=== PATIENT | female | born 1970 | race Hispanic/Latino ===

== ENCOUNTER 2016-11-08 09:48 | Emergency (ER) | payer OTHER ==
[2016-11-08] VITALS (8 sets, daily range): BP systolic 161–214; BP diastolic 84–114; PULSE 88–112; RESP 16–22; O2SAT 95–97
[~2016-11-08] VITALS: Ht 121.9 cm; Wt 68.2 kg
[~2016-11-08 09:48] MED LIST: CEPH500C PO; CLON0.1T PO; CYCL10TA9 PO; FLUC150T3 PO; FLUC150T48 PO; GLPZ5T PO; HYDR-4003 PO; HYDR25TA4 PO; LISI-567 PO; LOSA100T29 PO; LOVA40TA PO; METF500T4 PO; METH750T3 PO; MICO1KIT18 VG; PENI500T PO
--- NOTE | 2016-11-08 09:51 | ED.REPORT ---
HPI-Stroke / CVA Nov 08, 2016 ED Provider: Matt Cartwright MD 46 year old Tongan-speaking female with a history of brain aneurysm, diabetes, HTN, and high cholesterol presents to the ER via EMS accompanied by her due to right upper extremity weakness onset this morning while at work. Last known normal 09:00 today. However, the states that symptoms were present last night but resolved. He also mentions that the patient has not taken her diabetes medications for the past week. It is not clear if the patient is on anticoagulants or not. Patient is a poor historian. Nursing Notes Stated Complaint: RIGHT SIDE WEAKNESS Nursing Notes Reviewed: Yes Allergies: Coded Allergies: No Known Allergies (Verified , 02/20/16) Scheduled Cephalexin (Cephalexin) 500 Mg Capsule 500 MG PO TID Clonidine (Clonidine) 0.1 Mg Tablet 0.1 MG PO BID (Reported) Fluconazole (Diflucan) 150 Mg Tablet 150 MG PO ONCE Fluconazole (Fluconazole) 150 Mg Tablet 150 MG PO ONCE In [place] Please Glipizide (Glipizide) 5 Mg Tablet 5 MG PO BIDAC (Reported) Hydrochlorothiazide (Hydrochlorothiazide) 25 Mg Tablet 25 MG PO DAILY (Reported ) Lisinopril (Lisinopril) 20 Mg Tablet 20 MG PO DAILY (Reported) Losartan Potassium (Losartan Potassium) 100 Mg Tablet 100 MG PO DAILY (Reported ) Lovastatin (Lovastatin) 40 Mg Tablet 40 MG PO HS (Reported) Metformin (Metformin) 500 Mg Tablet 500 MG PO BIDWM (Reported) Miconazole/Skin Cleanser No.17 (Miconazole 3 Kit) 4 % (200 Mg)-2 % (9 Gram) Kit 1 EACH VG HS Penicillin V Potassium (Penicillin V Potassium) 500 Mg Tablet 500 MG PO TID Scheduled PRN Cyclobenzaprine (Cyclobenzaprine) 10 Mg Tablet 10 MG PO BID PRN PRN For Spasm ( Reported) Hydrocodone-Acetaminophen 5-325 mg (Hydrocodone-Acetaminophen 5-325 mg) 1 Each Tablet 1 TABLET PO QID PRN PRN For Pain Methocarbamol (Methocarbamol) 750 Mg Tablet 750 MG PO TID PRN PRN For Spasm ( Reported) General Time Seen by Provider: 09:48 Chief Complaint Weakness Right-sided, Arm right Hx Obtained From: Patient, Spouse Arrived By: Ambulance Time last known well 09:00 today Sudden in Onset?: Yes Symptom Duration: Since onset Progression Since Onset: Unchanged Pertinent Negative: Pt denies other symptoms Context Related History: Reports: Diabetes mellitus Similar Sx Previous: No Risk Factors )( TPA Administration/Criteria Stroke Thrombolytic Therapy : TPA Considered: Yes Neurologist Contacted: Yes Consent Obtained: Patient, Spouse Intensive Monitoring Performed: Yes TPA Administered Intravenously: Yes Inclusion Criteria: Dx acute ischemic CVA NIH Stroke Scale Level of Consciousness: Alert and responsive (0) Ask Month & Age: Both questions right (0) Open/Close Eyes/Hand Brood Station Manager: Performs both tasks (0) Horizontal EO Movements: None (0) Visual Vela: No visual loss (0) Facial Palsy: Normal symmetry (0) Right Arm Motor Drift (10s): Drift, not touch bed (1) Left Arm Motor Drift (10s): No drift 10 sec (0) Right Leg Motor Drift (5s): Drift, not touch bed (1) Left Leg Motor Drift (5s): No drift 5 sec (0) Limb Ataxia FNF/Heel-Ceja: No ataxia (0) Sensation (Arms/Legs/Face): Pinprick less sharp (1) (Right Upper and Lower extremities) Language Aphasia: No aphasia, normal (0) Dysarthria: No dysarthria, normal (0) Extinction/Inattention: No exctinct/inattent (0) NIHSS Score: 3 Time NIHSS Performed: 09:59 Date NIHSS Performed: Nov 08, 2016 )( CVA Risk Stratification Anticoag/bleed diathesis Diabetes mellitus Hyperlipidemia HypertensionNo Age > 60 Risk factors reviewed Past Medical History Past Medical History Brain aneurysm. Seen here, per patient Reports: Diabetes mellitus, Hyperlipidemia (High Cholesterol), Hypertension Past Surgical History Ear surgery Smoking History Unknown if Ever Smoker Social History Works at [employer], hanging and packing chicken. Other Social History: Good social support, Review of Systems Constitutional: Denies: Chills, Fever GI: Denies: Nausea, Vomiting Neurologic: Reports: Focal weakness (Right Upper Extremity), Denies: Change LOC, Confusion, Headache, Numbness, Slurred speech, Unable to speak Complete sys rev & neg: except as marked. Physical Exam Initial Vital Signs Vital Signs (First) Date Time Temp Pulse Resp B/P Pulse Ox O2 Delivery O2 Flow Rate FiO2 11/08/16 09:58 37.0 111 18 214/114 95 Room Air Initial VS: Reviewed Extremities: Vascular intact, Neuro intact, No swelling, No tenderness Skin: Warm, Dry, No cyanosis General/Constitutional: Awake, Alert, Well developed, Well nourished Head / Eyes: Normocephalic, PERRL, EOMI Neck: Supple, Full range of motion, No swelling, Non-tender, No carotid bruit Respiratory / Chest: Breath sounds NL, Breath sounds = bilat, No respiratory distress, No rales, No rhonchi, No wheezing Cardiovascular: Heart rate NL, Regular rhythm, Heart sounds NL, No murmurs, Peripheral circulation NL Neurologic: Oriented X3, Speech NL See the NIH Stroke Scale in the Risk section of this note. Interpretation & Diagnostics PROCEDURE: MRI BRAIN WITHOUT CONTRAST ([id number]) INDICATIONS: CVA SYMPTOMS TECHNIQUE: Noncontrast axial T1 spin echo, axial T2 fast spin echo, sagittal and axial FLAIR, coronal T2 fast spin echo, axial gradient echo, axial diffusion and ADC through the brain. COMPARISON: [facility], CT, BRAIN (TPA), 11/08/2016, 9:57. FINDINGS: Image quality: Excellent. CSF Spaces: Basal cisterns are patent. No extra-axial fluid collections. Ventricles are normal in size and shape. Brain: No intracranial masses or hemorrhage. Sauceda/white matter interface is normal. Brainstem appears normal. Diffusion-weighted images demonstrate a very slight appearance of hyperintensity within the left thalamus. It is noted that this does correlate to hypointense ADC signal. There is no discernible change on T2/FLAIR sequences. No chronic ischemic insults. Normal intravascular flow voids are present. The area of previous concern within the right temporal lobe appears to correlate with a perivascular space. No hemorrhage is identified within this region. Skull and face: Calvarium has normal marrow signal. Orbits appear normal. Sinuses: Sinuses and mastoids are clear. IMPRESSION: 1. Acute ischemia within the left thalamus as above. No evidence of superimposed hemorrhage. The above findings were discussed with Dr. Matt Spicer on 11/08/16 at 11: 28 AM. Dictated by: Briseida Beltran M.D. on 11/08/2016 at 11:23 Approved by: Briseida Beltran M.D. on 11/08/2016 at 11:30 PROCEDURE: CT ANGIO BRAIN NECK TPA INDICATIONS: Right-sided weakness. TECHNIQUE: Pre-contrast 4.5 mm thick sections acquired from the foramen magnum to the vertex. After the administration of intravenous contrast, 1 mm thick sections acquired from the aortic arch through the [place] of [place]. Post-contrast 4.5 mm thick sections then re-acquired from the foramen magnum to the vertex. 3- dimensional rlslsaw-ywjpwwczl-mhzpiddkae (MIP) and/or volume rendering reformats were acquired of the central intracranial vasculature and neck separately. For radiation dose reduction, the following was used: automated exposure control, adjustment of mA and/or kV according to patient size. COMPARISON: [facility], MR, MR BRAIN WO CON, 11/08/2016, 10:42. [facility], CT, BRAIN (TPA), 11/08/2016, 9:57. FINDINGS: Image quality: BRAIN: CSF spaces: Ventricles are normal in size and shape. Basal cisterns are patent. No extra-axial fluid collections. Brain: No midline shift. No intracranial bleeds or masses. Prominent perivascular space noted in the left putamen which is stable compared to MRI. Physiologic ossifications in the globus pallidus stable compared to prior CT scan of the head. Skull and face: Calvarium and facial bones appear intact, without suspicious lesions. Orbits appear normal. Sinuses: Mucosal thickening and air-fluid level is noted in the left maxillary sinus. mastoids are clear. HEAD CT ANGIOGRAPHY: Anterior circulation: Intracranial internal carotid arteries are normal in flow. Atherosclerotic calcifications noted in the cavernous and supraclinoid segments of the internal carotid arteries bilaterally which causes mild to moderate stenoses. The flow within the paired anterior cerebral arteries is normal and symmetric. The flow within the middle cerebral arteries is normal and symmetric. The anterior communicating artery is seen. No aneurysms are seen. Posterior circulation: Visualized portions of the vertebral arteries demonstrate normal caliber, and join to form a normal appearing basilar artery. Flow within the posterior cerebral arteries is normal and symmetric. No aneurysms are seen. Dural sinuses enhance normally. NECK CT ANGIOGRAPHY: Carotid system: The great vessels demonstrate a conventional anatomy as they arise from the aortic arch. The origins of the common carotid arteries appear patent. The common carotid arteries demonstrate normal caliber and courses. Atherosclerotic calcifications are noted the origins of the internal carotid arteries bilaterally which causes less than 50% stenosis of the vessels. Posterior circulation: The origins of the vertebral arteries both appear widely patent. The more superior extracranial portions of both vertebral arteries also demonstrate normal courses and calibers. They join to form a normal appearing basilar artery. Soft tissues: Visualized neck soft tissues demonstrate no suspicious abnormalities. Bones: No suspicious bony lesions. Visualized cervical spine appears normally aligned. IMPRESSION: 1. No cerebral aneurysm identified. 2. Multifocal mild to moderate stenoses involving the cavernous and supraclinoid segments of the intracranial internal carotid arteries bilaterally. 3. Less than 50% stenosis of the origins of the internal carotid arteries bilaterally. 4. Vertebral arteries appear fully patent. 5. Findings telephoned to Dr. Matt Cartwright on 11/08/16 at 1253 hrs. Dictated by: Beth Morton MD, PhD on 11/08/2016 at 12:49 Approved by: Beth Morton MD, PhD on 11/08/2016 at 13:08 Lab Results Interpretation Result Diagram: 11/08/16 0950 11/08/16 0950 Test 11/08/16 09:50 11/08/16 10:00 White Blood Count 11.1th/mm3 (3.8-10.1) Red Blood Count 5.22mil/mm3 (3.90-5.20) Hemoglobin 15.3g/dL (12.0-15.6) Hematocrit 44.6% (35.0-46.0) Mean Corpuscular Volume 85.4fL (81-100) Mean Corpuscular Hemoglobin 29.3pg (27.0-35.0) Mean Corpuscular Hemoglobin Concent 34.3% (32.0-37.0) Red Cell Distribution Width 12.2% (12.3-15.4) Platelet Count 402bil/L (150-400) Neutrophils (%) (Auto) 55.0% (40-74) Lymphocytes (%) (Auto) 31.8% (14-46) Monocytes (%) (Auto) 5.9% (4-12) Eosinophils (%) (Auto) 6.3% (0-5) Basophils (%) (Auto) 0.8% (0-3) Prothrombin Time 10.3sec (8.1-12.5) Prothromb Time International Ratio 0.96ratio Activated Partial Thromboplast Time 28.1sec (22.8-33.0) Sodium Level 135mEq/L (134-144) Potassium Level 3.5mEq/L (3.5-5.2) Chloride Level 95mEq/L (97-108) Carbon Dioxide Level 21mmol/L (18-29) Blood Urea Nitrogen 8mg/dL (6-24) Creatinine 0.42mg/dL (0.57-1.00) Estimat Glomerular Filtration Rate 232mL/min (>59) Glucose Level 427mg/dL (60-99) Calcium Level 9.0mg/dL (8.5-10.1) Total Bilirubin 0.4mg/dL (0.0-1.2) Aspartate Amino Transf (AST/SGOT) 32U/L (0-50) Alanine Aminotransferase (ALT/SGPT) 40U/L (0-32) Alkaline Phosphatase 101U/L (25-150) Troponin T 0.010ug/L (0.0-0.011) Total Protein 8.4g/dL (6.4-8.4) Albumin 4.3g/dL (3.4-5.0) Urine Color Straw (YELLOW) Urine Appearance Hazy (CLEAR,HAZY) Urine pH 6.5 (5.0-8.0) Urine Specific [place] 1.010 (1.003-1.035) Urine Protein Negativemg/dL (NEG,TRACE) Urine Glucose (UA) 1000mg/dL (NEGATIVE) Urine Ketones Negativemg/dL (NEGATIVE) Urine Occult Blood Trace (NEGATIVE) Urine Nitrite Negative (NEGATIVE) Urine Bilirubin Negative (NEGATIVE) Urine Urobilinogen Normalmg/dL (NORMAL) Urine Leukocyte Esterase Negative (NEGATIVE) Urine RBC 0-2/hpf (0-2) Urine WBC 0-5/hpf (0-5) Urine Epithelial Cells Occasional/hpf (NONE-MOD) Urine Crystals None seen (NONE SEEN) Urine Bacteria None/hpf (NONE-FEW) Urine Hyaline Casts None/lpf (NONE) Urine Granular Casts None seen (NONE SEEN) Urine Waxy Casts None seen (NONE SEEN) Urine Red Blood Cell Casts None seen (NONE SEEN) Urine White Blood Cell Casts None seen (NONE SEEN) Urine Mucus None seen (None Seen) Urine Trichomonas None seen (NONE SEEN) Urine Yeast None (NONE SEEN) Urinalysis Comment None Urine Culture Reflexed Not indicated ECG Interpretation ECG Interpretation: Sinus rhythm, rate 93 LVH Time: 12:03 Interpreted by: ED physician CT Head Interpretation IMPRESSION: 1. Questionable intermediate density focus within the right lentiform nucleus adjacent to a hypodense lesion which may represent a prominent perivascular space or small old lacunar infarct. Given the hyperdense focus, intracranial hemorrhage cannot be excluded. If further characterization is warranted, noncontrast MRI of the brain is recommended to evaluate for blood products. The finding was discussed with Dr. Alessandro Anaya at 10:07 AM on 11/08/16. 2. Left maxillary sinus and left mastoid air cell mucosal disease. This study fulfills neurological imaging criteria for inclusion or exclusion of acute stroke therapies based on available published neurological imaging guidelines. Dictated by: Ivana Coto M.D. on 11/08/2016 at 10:02 Approved by: Ivana Coto M.D. on 11/08/2016 at 10:09 Study: Head CT no contrast Interpretation / Wet Read by: Interpret - Radiologist Re-Eval/Medical Decision Med Decision/Clinical Course 46-year-old female history of diabetes, hypertension, high cholesterolemia, question of previous aneurysm resenting with right upper extremity and lower extremity weakness and decreased sensation right upper extremity and right lower extremity last known normal 9 AM this morning. Patient came in as a code stroke. She received CT brain immediately and there was a question of possible hemorrhage by the radiologist but it was not confirmed. They recommended urgent MRI. I spoke with stroke neurologist immediately who agreed with this plan. MRI showed left thalamic infarct with no evidence of aneurysm. I spoke with stroke neurologist again who did not want to give TPA until we could rule out aneurysm given patient's previous report of aneurysm. Patient is a very poor historian and at times she said she did not know what an aneurysm was. She also was not sure if she is on any blood thinners. We did obtain a list from her primary doctor which showed no blood thinners. Care was delayed due to patient unclear on her specifics and being a poor historian. Discussed with stroke neurologist again he requested CT angiogram brain to rule out history of aneurysm given patient's report. CT angiogram showed no evidence of aneurysm. Decision made by [facility] neurology to give TPA extended time frame. As mentioned there was significant delay given patient's mention of a previous aneurysm and the need for multiple imaging due to possible initial bleed as well as possible history of aneurysm. TPA was given within the extended TPA timeframe. No contraindication to TPA per patient. Her exam was improved after TPA. She was transferred emergently to [facility] in [place]. Nicardiipine drip ordered to maintain blood pressure control. Insulin event for elevated blood sugar. Repeat blood sugar 210. Recheck prior to discharge. TPA given within 4-1/2 hours of onset, extended time frame okay per neurologist. Source of Hx: Old records Re-Evaluation/Progress #1: Time of Eval: 10:10 Re-Evaluation/Progress Note: Completed physical examination. Discussed CT results and need for STAT MRI. Re-Evaluation/Progress #2: Time of Eval: 11:40 Re-Evaluation/Progress Note: Discussed patient's history of brain aneurysm in greater detail. She reports that she had a blood vessel in her brain that was in danger of rupturing years ago. Per patient, she was seen at the hospital here at that time, and never received surgery. Re-Evaluation/Progress #3: Time of Eval: 12:01 Re-Evaluation/Progress Note: Discussed radiology and neurology consults. Updated patient on the plan of care. Consultation #1: Consulted With: On-call physician (Radiology) Call Returned at: 10:06 Note: Radiology called to discuss CT results. Possible bleed in the basal ganglia. STAT MRI. Consultation #2: Referral / Consult Name: Fabiano Atwood MD Consulted With: Neurology ([facility]) Call Returned at: 10:17 Note: Agrees with MRI, call back if there is no bleed. Consultation #3: Consulted With: On-call physician (Radiology) Call Returned at: 11:29 Note: Radiology called to discuss MRI results. No bleed. Consultation #4: Referral / Consult Name: Fabiano Atwood MD Consulted With: Neurology ([facility]) Call Returned at: 11:33 Note: Order head CTA. If no aneursym, proceed with TPA. Consultation #5: Consulted With: On-call physician (Radiology) Call Returned at: 11:49 Note: Discussed patient's history with Radiology. Consultation #6: Referral / Consult Name: Fabiano Atwood MD Consulted With: Neurology Call Returned at: 12:55 Note: Administer TPA per inclusion criteria. Counseled Regarding: Diagnosis, Lab results, Need for transfer Patient Discharge & Departure Impression: Primary Impression: Cerebrovascular accident Disposition: Transfer, Acute Care Facility Receiving Hospital: [facility] Transfer Accepted: Yes Transfer Reason: Higher level of care Spoke with: Attending physician Patient Status: Stable for transfer Patient Informed: Yes Discharge Condition All VS Reviewed: Yes Condition: Stable Referrals: [facility] Billable Proc Time Spent: 75-104 minutes Services Performed: Patient management by me, Time spent at bedside, Reviewing test results, Reviewing imaging, Discussing patient care, Documentation in record, Time with fam/surrogate Scribe Attestation Portions of this note were transcribed by Diogo Ramirez. I, Dr. Cartwright, personally performed the history, physical exam and medical decision-making; I reviewed and confirmed the accuracy of the information in the transcribed note. Signed by: Leann Jackson, 11/08/2016 and 1409 copies to: [facility] Ben M MD Nov 08, 2016 09:51 DIOGO RAMIREZ Nov 08, 2016 10:05
[2016-11-08 10:10] LABS: BASOPHILS % (AUTO) 0.8 % (0-3); EOSINOPHILS % (AUTO) 6.3 % (0-5); MONOCYTES % (AUTO) 5.9 % (4-12); Mean Corpuscular Hemoglobin 29.3 pg (27.0-35.0); Mean Corpuscular Volume 85.4 fL (81-100); Platelet Count 402 bil/L (150-400)
--- NOTE | 2016-11-08 10:11 | DRSVH ---
PROCEDURE: CT BRAIN (TPA) ([id number]) INDICATIONS: Stroke TECHNIQUE: Noncontrast 4.5 mm thick angled axial sections acquired from the foramen magnum to the vertex, with c oronal reformats. COMPARISON: None. FINDINGS: Image quality: Excellent. CSF spaces: Basal cisterns are patent. No extra-axial fluid collections. Ventricles are normal in size and shape. Brain: No midline shift. No intracranial masses. A 11 x 4 mm hypodense focus is present within the right lentiform nucleus. Just posterior to this low density focus is a 3 mm diameter intermediate den sity region. This appears more dense than the surrounding brain parenchyma (series 3, image 13). Gra y-white matter interface is otherwise normal. Skull and face: Calvarium and visualized facial bones are intact, without suspicious lesions. Sinuses: There is near-complete opacification of the left maxillary sinus and right maxillary sinus mucus retention cysts. The left mastoid air cells are partially fluid filled. Visualized sinuses and mastoids are otherwise clear. IMPRESSION: 1. Questionable intermediate density focus within the right lentiform nucleus adjacent to a hypodense lesion which may represent a prominent perivascular space or small old lacunar infarct. Given the hy perdense focus, intracranial hemorrhage cannot be excluded. If further characterization is warranted, noncontrast MRI of the brain is recommended to evaluate for blood products. The finding was discussed with Dr. Alessandro Anaya at 10:07 AM on 11/08/16. 2. Left maxillary sinus and left mastoid air cell mucosal disease. This study fulfills neurological imaging criteria for inclusion or exclusion of acute stroke therapie s based on available published neurological imaging guidelines. Dictated by: Ivana Coto M.D. on 11/08/2016 at 10:02 Approved by: Ivana Coto M.D. on 11/08/2016 at 10:09
[2016-11-08 10:34] LABS: INR 0.96 ratio
[2016-11-08] MEDS ORDERED: Insulin LISPRO 300 Unit/3 mL Inj SUBQ ONE ×2 (10:35→14:15)
[2016-11-08 10:52] LABS: TROPONIN T 0.01 ug/L (0.0-0.011)
[2016-11-08 11:04] LABS: APPEARANCE,URINE HAZY (CLEAR,HAZY); COLOR,URINE STRAW (YELLOW); OCCULT BLOOD,URINE TRACE (NEGATIVE); PH,URINE 6.5 (5.0-8.0); UROBILINOGEN,URINE NORMAL (NORMAL)
--- NOTE | 2016-11-08 11:32 | DRSVH ---
PROCEDURE: MRI BRAIN WITHOUT CONTRAST ([id number]) INDICATIONS: CVA SYMPTOMS TECHNIQUE: Noncontrast axial T1 spin echo, axial T2 fast spin echo, sagittal and axial FLAIR, coronal T2 fast sp in echo, axial gradient echo, axial diffusion and ADC through the brain. COMPARISON: [facility], CT, BRAIN (TPA), 11/08/2016, 9:57. FINDINGS: Image quality: Excellent. CSF Spaces: Basal cisterns are patent. No extra-axial fluid collections. Ventricles are normal in size and shape. Brain: No intracranial masses or hemorrhage. Sauceda/white matter interface is normal. Brainstem appe ars normal. Diffusion-weighted images demonstrate a very slight appearance of hyperintensity within the left thalamus. It is noted that this does correlate to hypointense ADC signal. There is no discer nible change on T2/FLAIR sequences. No chronic ischemic insults. Normal intravascular flow voids are present. The area of previous concern within the right temporal lobe appears to correlate with a pe rivascular space. No hemorrhage is identified within this region. Skull and face: Calvarium has normal marrow signal. Orbits appear normal. Sinuses: Sinuses and mastoids are clear. IMPRESSION: 1. Acute ischemia within the left thalamus as above. No evidence of superimposed hemorrhage. The above findings were discussed with Dr. Matt Spicer on 11/08/16 at 11:28 AM. Dictated by: Briseida Beltran M.D. on 11/08/2016 at 11:23 Approved by: Briseida Beltran M.D. on 11/08/2016 at 11:30
[2016-11-08] MEDS ORDERED: Labetalol 5 mg/mL 4 mL Inj IVPUSH ONE ×2 (11:35→13:25)
[2016-11-08] MEDS ORDERED: 0.9% Sodium Chloride 100 ML ONE (13:00)
--- NOTE | 2016-11-08 13:09 | DRSVH ---
PROCEDURE: CT ANGIO BRAIN NECK TPA INDICATIONS: Right-sided weakness. TECHNIQUE: Pre-contrast 4.5 mm thick sections acquired from the foramen magnum to the vertex. After the adminis tration of intravenous contrast, 1 mm thick sections acquired from the aortic arch through the [place]. Post-contrast 4.5 mm thick sections then re-acquired from the foramen magnum to the vert ex. 3-dimensional diosktt-wdrfoiose-gcqgzbnrdb (MIP) and/or volume rendering reformats were acquired of the central intracranial vasculature and neck separately. For radiation dose reduction, the foll owing was used: automated exposure control, adjustment of mA and/or kV according to patient size. COMPARISON: [facility], MR, MR BRAIN WO CON, 11/08/2016, 10:42. [facility], CT, BRAIN (TPA), 11/08/2016, 9:57. FINDINGS: Image quality: BRAIN: CSF spaces: Ventricles are normal in size and shape. Basal cisterns are patent. No extra-axial flu id collections. Brain: No midline shift. No intracranial bleeds or masses. Prominent perivascular space noted in th e left putamen which is stable compared to MRI. Physiologic ossifications in the globus pallidus stab le compared to prior CT scan of the head. Skull and face: Calvarium and facial bones appear intact, without suspicious lesions. Orbits appear normal. Sinuses: Mucosal thickening and air-fluid level is noted in the left maxillary sinus. mastoids are cl ear. HEAD CT ANGIOGRAPHY: Anterior circulation: Intracranial internal carotid arteries are normal in flow. Atherosclerotic daisy cifications noted in the cavernous and supraclinoid segments of the internal carotid arteries bilater ally which causes mild to moderate stenoses. The flow within the paired anterior cerebral arteries is normal and symmetric. The flow within the middle cerebral arteries is normal and symmetric. The an terior communicating artery is seen. No aneurysms are seen. Posterior circulation: Visualized portions of the vertebral arteries demonstrate normal caliber, and join to form a normal appearing basilar artery. Flow within the posterior cerebral arteries is norm al and symmetric. No aneurysms are seen. Dural sinuses enhance normally. NECK CT ANGIOGRAPHY: Carotid system: The great vessels demonstrate a conventional anatomy as they arise from the aortic a rch. The origins of the common carotid arteries appear patent. The common carotid arteries demonstr ate normal caliber and courses. Atherosclerotic calcifications are noted the origins of the internal carotid arteries bilaterally which causes less than 50% stenosis of the vessels. Posterior circulation: The origins of the vertebral arteries both appear widely patent. The more ewing perior extracranial portions of both vertebral arteries also demonstrate normal courses and calibers. They join to form a normal appearing basilar artery. Soft tissues: Visualized neck soft tissues demonstrate no suspicious abnormalities. Bones: No suspicious bony lesions. Visualized cervical spine appears normally aligned. IMPRESSION: 1. No cerebral aneurysm identified. 2. Multifocal mild to moderate stenoses involving the cavernous and supraclinoid segments of the intr acranial internal carotid arteries bilaterally. 3. Less than 50% stenosis of the origins of the internal carotid arteries bilaterally. 4. Vertebral arteries appear fully patent. 5. Findings telephoned to Dr. Matt Cartwright on 11/08/16 at 1253 hrs. Dictated by: Beth Morton MD, PhD on 11/08/2016 at 12:49 Approved by: Beth Morton MD, PhD on 11/08/2016 at 13:08
[2016-11-08] MEDS ORDERED: Alteplase Dose Per Pharmacist XX ONE (13:10)
[2016-11-08] MEDS ORDERED: ALTEPLASE IV ONE (13:30)
[2016-11-08] MEDS ORDERED: Alteplase (No Charge) 1 mg/mL Syringe IV ONE (13:30)
[2016-11-08] MEDS ORDERED: hydrALAZINE 20 mg/mL Inj IV ONE (13:35)
[2016-11-08] MEDS ORDERED: NiCARdipine Inj 25 MG in Dextrose 5% 240 ML IV SCH (13:55)
--- NOTE | 2016-11-08 14:39 | NUR ---
Evaluation completed. Please go to "Notes" then click on "Assessments and Notes" (bottom left corner of screen). Then select appropriate discipline tab on top of screen.
== END 2016-11-08 14:27 | disposition short-term general hospital (02) ==
LOC: EDUNIT# 09:48 → SED 09:48
DX: I63.9 Cerebral infarction, unspecified (principal); R29.703 NIHSS score 3; I11.9 Hypertensive heart disease without heart failure; E11.59 Type 2 diabetes mellitus with other circulatory complications; Z79.84 Long term (current) use of oral hypoglycemic drugs
CPT/HCPCS: 36415; 70450; 70496; 70498; 70551; 80053; 81000; 82948; 84484; 85025; 85610; 85730; 92610; 93005; 96361; 96365; 96372; 96374; 96375; 99291; 99292; J0360; J1815; J2997; Q9967